=== PATIENT | female | born 2000 | race Hispanic/Latino ===

== ENCOUNTER 2020-06-05 09:03 | Emergency (ER) | payer OTHER ==
[~2020-06-05] VITALS: Ht 157.5 cm; Wt 80.5 kg
--- NOTE | 2020-06-05 09:25 | Emergency Department Note ---
History of Present Illnes History of Present Illness Chief Complaint: Abdominal Complaints History of Present Illness This is a 19 year old female 3 week h/o of CP with pedal edema and SOB. Patient reports a multitude of issues which includes VALDES, Abd pain, dyspnea. States that her mother had listened to her and was able to auscultate PVC's. FH of Christie's thyroiditis . Historian: Patient, Family Member Arrival Mode: Car Onset (how long ago): week(s) (3) Radiation: Reports non-radiation Severity: moderate Onset quality: gradual Duration (how long): week(s) (3) Timing of current episode: constant Progression: worsening Chronicity: new Context: Reports recent illness Relieving factors: none Exacerbating factors: none Associated symptoms: Reports chest pain, Reports shortness of breath Past Medical/Family History Physician Review I have reviewed the patient's past medical and family history. Any updates have been documented here. Past Medical History Recent Fever: No Clinical Suspicion of Infectio: No New/Unexplained Change in Ment: No Past Medical History: None Past Surgical History: None Social History Smoking Cessation: Never Smoker Alcohol Use: None Any Illegal Drug Use: No Review of Systems Review of Systems Constitutional: Reports weakness EENTM: Reports no symptoms Cardiovascular: Reports chest pain, Reports edema Respiratory: Reports wheezing Gastrointestinal: Reports abdominal pain Genitourinary: Reports no symptoms Musculoskeletal: Reports no symptoms Integumentary: Reports no symptoms Neurological: Reports no symptoms Psychological: Reports no symptoms Endocrine: Reports no symptoms Hematological/Lymphatic: Reports no symptoms Physical Exam Related Data Allergies: Coded Allergies: codeine (Verified Allergy, Unknown, 06/05/20) iodine (Verified Allergy, Unknown, 06/05/20) Vital signs reviewed: Yes Physical Exam CONSTITUTIONAL Constitutional: Present well-developed, Present well-nourished, Present obese HENT HENT: Present normocephalic, Present atraumatic, Present oropharynx clear/moist, Present nose normal HENT L/R: Present left ext ear normal, Present right ext ear normal EYES Eyes: Reports PERRL, Reports conjunctivae normal NECK Neck: Present ROM normal PULMONARY Pulmonary: Present effort normal, Present breath sounds normal CARDIOVASCULAR Cardiovascular: Present regular rhythm, Present heart sounds normal, Present capillary refill normal, Present normal rate, Present LLE edema, Present RLE edema GASTROINTESTINAL Abdominal: Present soft, Present nontender, Present bowel sounds normal GENITOURINARY Genitourinary: Present exam deferred SKIN Skin: Present warm, Present dry MUSCULOSKELETAL Musculoskeletal: Present ROM normal NEUROLOGICAL Neurological: Present alert, Present oriented x 3, Present no gross motor or sensory deficits PSYCHOLOGICAL Psychological: Present mood/affect normal, Present judgement normal Results Laboratory Lab results reviewed: Yes Imaging Imaging results reviewed: Yes Impressions [place] [address] Patient Name: LINDA MICHAUD MR #: [id number] : 2000 Age/Sex: 19/F Req #: [id number] Adm Physician: Ordered by: LULU MONGE DO Report #: [id number] Location: [facility] Room/Bed: Procedure: [id number] HOPD/CXR 2 VIEW - HOPD Exam Date: 06/05/20 Exam Time: 954 REPORT STATUS: Signed EXAMINATION: CXR 2 VIEW - HOPD INDICATION: Headache. Nausea. Feet swelling. ^SOB ^[id number] ^[id number] COMPARISON: None FINDINGS: TUBES and LINES: None. LUNGS: Lungs are well inflated. Lungs are clear. There is no evidence of pneumonia or pulmonary edema. PLEURA: No pleural effusion or pneumothorax. HEART AND MEDIASTINUM: The cardiomediastinal silhouette is unremarkable. BONES AND SOFT TISSUES: No acute osseous lesion. Linear metallic foreign bodies over the inferior breast tissue on the frontal image. UPPER ABDOMEN: No free air under the diaphragm. IMPRESSION: No acute thoracic abnormality. Signed by: Dr. Jay Baeza M.D. on 06/05/2020 10:00 AM Dictated By: JAY BAEZA MD, MD 1000 Transcribed By: JOHN on 06/05/20 1000 COPY TO: LULU MONGE DO~ Procedures 12 Lead ECG Interpretation ECG Interpretation : ECG: ECG 1 Telegraph And Teletype Operator: Interpreted by ED physician Date: Jun 05, 2020 Time: 09:42 Prior ECG tracings: reviewed Rhythm: sinus rhythm Rate: normal BPM: 65 QRS axis: normal Conduction: incomplete RBBB ST segments normal: Yes T waves normal: Yes Clinical Impression: non-specific ECG Assessment & Plan Medical Decision Making MDM Diff Dx : thyroiditis, CHF, ACS, PNA, Reassessment Reassessment S/W stepmother who is a charge nurse [facility] and set expectations regarding lab work for patient. Lab results to be given to the patient with f/u to Dr Lauren Orourke Assessment & Plan Final Impression: (1) Weakness Depart Disposition: HOME, SELF-CARE LULU MONGE DO Jun 05, 2020 09:25
--- NOTE | 2020-06-05 10:03 | Diagnostic Imaging Report ---
EXAMINATION: CXR 2 VIEW - HOPD INDICATION: Headache. Nausea. Feet swelling. ^SOB ^[id number] ^[id number] COMPARISON: None FINDINGS: TUBES and LINES: None. LUNGS: Lungs are well inflated. Lungs are clear. There is no evidence of pneumonia or pulmonary edema. PLEURA: No pleural effusion or pneumothorax. HEART AND MEDIASTINUM: The cardiomediastinal silhouette is unremarkable. BONES AND SOFT TISSUES: No acute osseous lesion. Linear metallic foreign bodies over the inferior breast tissue on the frontal image. UPPER ABDOMEN: No free air under the diaphragm. IMPRESSION: No acute thoracic abnormality. Signed by: Dr. Jay Baeza M.D. on 06/05/2020 10:00 AM
--- OUTSIDE RECORDS SUMMARY | 2020-06-05 10:05 | XMS REPORT | Continuity of Care Document ---
Author Author [facility] Organization [facility] Address 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 Allergies, Adverse Reactions, Alerts This patient has no known allergies or adverse reactions. Social History Social Habit Start Date Stop Date Quantity Comments Source Sex Assigned At [facility] Alcohol intake 2019-02-12 00:00:00 2019-02-12 00:00:00 Current non-drinker of alcohol (finding) Mitchell Cornell Smoking Status Start Date Stop Date Source Never smoker Mitchell alford Medications Ordered Medication Name Filled Medication Name Start Date Stop Da te Current Medication? Ordering Clinician Indication Dosage Frequency Signature (SIG) Comments Components Source predniSONE (DELTASONE) 1 mg tablet 2019-02-12 10:26:13 Yes 1mg QD Take 1 mg by mouth daily. Mitchell Cornell gabapentin (NEURONTIN) 100 mg capsule 2019-02-12 10:26:13 Yes 100mg [id number] Take 100 mg by mouth 3 (three) times a day. Mitchell Cornell beclomethasone (QVAR) 40 mcg/actuation inhaler 2017-10-28 00:00: 00 Yes 80ug Inhale 80 mcg. Mitchell graham albuterol (PROAIR HFA,PROVENTIL HFA,VENTOLIN HFA) 90 mcg/act uation inhaler 2017-10-26 00:00:00 Yes 540ug Inhale 540 mcg. [facility] Procedures This patient has no known procedures. Plan of Care Planned Activity Planned Date Details Comments Source Future Scheduled Test 2020-06-26 00:00:00 INFLUENZA VACCINE [code = INFLUENZA VACCINE] [facility] Future Scheduled Test 2016 00:00:00 CHLAMYDIA SCREENIN G [code = CHLAMYDIA SCREENING] [facility] Results Test Description Test Time Test Comments Results Result Comments Source CXR 2 VIEW - HOPD 2020-06-05 09:58:00 [facility] [address] [address] Patient Name: LINDA MICHAUD MR #: [id number] : 2000 Age/Sex: 19/F Req #: [id number] Adm Physician: Ordered by: LULU MONGE DO Report #: [id number] Location: [facility] Room/Bed: Procedure: [id number] HOPD/CXR 2 VIEW - HOPD Exam Date: 06/05/20 Exam Time: 954 REPORT STATUS: Signed EXAMINATION: CXR 2 VIEW - HOPD INDICATION: Headache. Nausea. Feet swelling. SOB [id number] COMPARISON: None FINDINGS: TUBES and LINES: None. LUNGS: Lungs are well inflated. Lungs are clear. There is no evidence of pneumonia or pulmonary edema. PLEURA: No pleural effusion or pneumothorax. HEART AND MEDIASTINUM: The cardiomediastinal silhouette is unremarkable. BONES AND SOFT TISSUES: No acute osseous lesion. Linear metallic foreign bodies over the inferior breast tissue on the frontal image. UPPER ABDOMEN: No free air under the diaphragm. IMPRESSION: No acute thoracic abnormality. Signed by: Dr. Abner Baeza M.D. on 06/05/2020 10:00 AM Dictated By: ABNER BAEZA MD, MD 1000 Transcribed By: JOHN on 06/05/20 1000 COPY TO: LULU MONGE DO Chemistry - Specials 2020-06-03 16:35:00 Test Item Chemistry - Specials (test code = TSH3) 0.6408 uIU/mL 0.35-4.94 N [id number] 15:45:00* Test Item Value Reference Range Interpretation Comments Urinalysis (test code = BHCGUT) Negative Negative Method of sensitivity- INDETERMINANT: results should be repeated after 48-72 hrs POSITIVE: results may be detected as early as 1 day after the first missed period A dilute urine specimen may not contain representativelevels of hCG.If is still suspected, a first morning urinespecimen OR a random blood specimen should be obtainedfrom the patient 48- 72 hours later and re-tested. Urinalysis (test code = PREGUSG) 1.018 1.002-1.036 N [id number] 15:43:00* Test Item Value Reference Range Interpretation Comments Urinalysis (test code = UACLR) Light-Yellow Yellow Urinalysis (test code = UACLY) Clear Clear Urinalysis (test code = SPGR) 1.018 1.002-1.036 N Urinalysis (test code = TRISTEN) 6.5 5.0-9.0 N Urinalysis (test code = UALEU) Negative Flavia/uL Negative Urinalysis (test code = UANIT) Negative Negative Urinalysis (test code = PROUADIP) Negative mg/dL Neg-Trace Urinalysis (test code = GLUCU) Normal mg/dL Negative Urinalysis (test code = KETU) Negative mg/dL Negative Urinalysis (test code = UAUROB) Normal mg/dL Less than 2 Urinalysis (test code = UABIL) Negative Negative Urinalysis (test code = UABLD) Negative Negative Urine Source: Urine Clean [id number] 15:33:00* Test Item Value Reference Range Interpretation Comments Chemistry (test code = NA-T) 140 mmol/L 136-145 N Chemistry (test code = K-T) 3.7 mmol/L 3.5-5.1 N Chemistry (test code = CL) 109 mmol/L 98-107 H Chemistry (test code = CO2) 21 mmol/L 22-29 L Chemistry (test code = ANGP) 14 mmol/L 10-20 N Chemistry (test code = BUN) 7 mg/dL 8.4-21.0 L Chemistry (test code = CREATT) 0.81 mg/dL 0.6-1.1 N Chemistry (test code = EGFRMDRD) Greater than 90 Reference Range for Estimated GFR: Greater than 90 mL/min/1.73 m2NOTE:The MDRD equation has not been validated for use with theelderly (over 70 years of age), women, patientswith serious comorbid condition or persons with extremes ofbody size, muscle mass, or nutritional status. Chemistry (test code = GLU-T) 93 mg/dL 70-105 N Chemistry (test code = CA) 9.2 mg/dL 7.8-10.44 N Chemistry (test code = TBILI-T) 0.3 mg/dL 0.2-1.2 N Chemistry (test code = TP) 7.3 g/dL 6.0-8.3 N Chemistry (test code = ALB) 4.4 g/dL 3.5-5.0 N Chemistry (test code = GLOB) 2.9 g/dL 2.4-3.5 N Chemistry (test code = AG) 1.5 g/dL 1.2-2.2 N Chemistry (test code = ALP) 71 U/L 40-100 N Chemistry (test code = AST) 16 U/L 5-30 N Chemistry (test code = ALT) 13 U/L 8-55 N [id number] 15:12:00* Test Item Value Reference Range Interpretation Comments Hematology (test code = WBCT) 9.6 thou/uL 4.8-10.8 N Hematology (test code = RBCT) 4.73 mill/uL 4.00-5.20 N Hematology (test code = HGBT) 14.0 g/dL 12.0-16.0 N Hematology (test code = HCTT) 40.6 % 36.0-47.0 N Hematology (test code = MCV) 85.8 fL 78.0-98.0 N Hematology (test code = MCH) 29.6 pg 25.0-35.0 N Hematology (test code = MCHC) 34.5 g/dL 32.0-36.0 N Hematology (test code = RDW) 11.3 % 11.5-14.5 L Hematology (test code = PLTT) 258 thou/uL 130-400 N Hematology (test code = MPV) 8.1 fL 7.4-10.4 N Hematology (test code = %NEUT) 59.5 % 31.0-61.0 N Hematology (test code = %LYMPH) 30.3 % 28.0-48.0 N Hematology (test code = %MONO) 5.2 % 0.0-4.0 H Hematology (test code = %EOS) 4.7 % 0.0-10.0 N Hematology (test code = %BASO) 0.4 % 0.0-1.0 N Hematology (test code = NEUT#) 5.7 thou/uL 1.40-6.50 N Hematology (test code = LYMPH#) 2.9 thou/uL 1.20-3.40 N Hematology (test code = MONO#) 0.5 thou/uL 0.11-0.59 N Hematology (test code = EOS#) 0.4 thou/uL 0.0-0.7 N Hematology (test code = BASO#) 0.0 thou/uL 0.0-0.2 N Reference Lab [id number] 11:58:00* Test Item Value Reference Range Interpretation Comments Reference Lab Testing (test code = [id number]) Not Detected NotDetect ed Negative (Not Detected) results do not preclude infectionwith SARS-CoV-2 virus, and should not be the sole basis of apatient management decision. Consider testing for otherviruses if clinically indicated.The use of this assay as an In vitro diagnostic under theA Emergency Use Authorization (EUA) is limited tolaboratories that are certified under the ClinicalLaboratory Improvement Amendments of 1988 (CLIA), 42 U.S.C.263a, to perform high complexity tests. Reason for Testing: PUI -SymptomaticCulture, Strep Group A [id number] 15:04:00* Test Item Value Reference Range Interpretation Comments Culture, Strep Group A Rflx (test code = STRPACULT) STRPCULT Culture, Strep Group A Rflx (test code = STRPACULT1) N Influenza A B Ag [id number] 03:13:00* Test Item Value Reference Range Interpretation Comments Influenza A B Ag Screen (test code = FLU) The rapid Fl u A B test can distinguish between influenza A Influenza A B Ag Screen (test code = FLU1) follow up c onfirmatory testing is warranted. Influenza A B Ag Screen (test code = FLU1) FLUB Influenza A B Ag Screen (test code = FLU1) N Strep Group A [id number] 02:58:00* Test Item Value Reference Range Interpretation Comments Strep Group A Screen (test code = STRP) STRPANEG1 Strep Group A Screen (test code = STRP1) N Strep Group A Screen (test code = STRP1) STRPTH
--- OUTSIDE RECORDS SUMMARY | 2020-06-05 10:05 | XMS REPORT | Clinical Summary ---
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 8 HFA,VENTOLIN HFA) 90 mcg/actuation inhaler Active beclomethasone (QVAR) 40 Inhale 80 0 10/28 mcg/actuation inhaler mcg. 8 Active predniSONE (DELTASONE) 1 Take 1 mg by 0 mg tablet mouth daily. Active gabapentin (NEURONTIN) Take 100 mg 0 100 mg capsule by mouth 3 (three) times a day. Active Problems Not on file Social History Date Tobacco Use Types Packs/Day Years Used Never Smoker Smokeless Tobacco: Never Used Drinks/Week oz/Week Comments Alcohol Use No Sex Assigned at Date Recorded Not on file Industry Job Start Date Occupation Not on file Not on file Not on file Travel End Travel History Travel Start No recent travel history available. Last Filed Vital Signs Not on file Plan of Treatment Health Maintenance Due Date Last Done Comments CHLAMYDIA SCREENING 2016 INFLUENZA VACCINE 06/26/2020 Results Not on fileafter 06/05/2019 Insurance Type Payer Benefit Subscriber ID Effective Phone Address Plan / Dates Group Workers Comp WORKERS COMP MISC xxxxxxxxx 2018-P WORKER'S resent COMP TPL TPL TPL-MED-DA [id number] 2019- TA Present Guarantor Name Account Relation to Date of Phone Mckenzie parker Address Type Patient [id number] Workers Employer [id number] Comp (Home) [place] [address] Francesca Issa Third Self [phone] [employer] (Home) [place] [address] Liability NINA TOVAR Personal/F Mother 07/03/[phone] amily (Home) [place] [address] Advance Directives For more information, please contact: [phone] 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
[2020-06-05 10:35] LABS: BASOPHILS # (AUTO) 0.1 (0.0-0.1); BASOPHILS % 0.7 % (0.0-1.0); EOSINOPHILS # (AUTO) 0.3 (0.0-0.4); EOSINOPHILS % 3.8 % (0.0-6.0); HEMATOCRIT 38.5 % (34.2-44.1); HEMOGLOBIN 12.8 g/dL (12.0-16.0); LYMPHOCYTES # (AUTO) 2.3 (1.0-3.2); LYMPHOCYTES % 25.7 % (18.0-39.1); MEAN CORPUSCULAR HEMOGLOBIN 27.6 pg (28-32); MEAN CORPUSCULAR HGB CONC 33.2 g/dL (31-35); MONOCYTES # (AUTO) 0.5 (0.2-0.8); MONOCYTES % 5.5 % (4.4-11.3); NEUTROPHILS # (AUTO) 5.8 (2.1-6.9); NEUTROPHILS % 64.1 % (38.7-80.0); PLATELET COUNT 264 x10e3/uL (140-360); RED BLOOD COUNT 4.64 x10e6/uL (3.6-5.1); RED CELL DISTRIBUTION WIDTH 12.1 % (11.7-14.4)
[2020-06-05 10:53] LABS: ALANINE AMINOTRANSFERASE 14 IU/L (0-55); ALBUMIN 4.4 g/dL (3.5-5.0); ALBUMIN/GLOBULIN RATIO 1.6 (0.8-2.0); ALKALINE PHOSPHATASE 58 IU/L (40-150); ANION GAP 14.9 mmol/L (8-16); BLOOD UREA NITROGEN 9 mg/dL (7-26); BUN/CREATININE RATIO 11 (6-25); CALCIUM 8.8 mg/dL (8.4-10.2); CARBON DIOXIDE 19 mmol/L (22-29); CHLORIDE 109 mmol/L (98-107); CREATININE, SERUM 0.83 mg/dL (0.57-1.11); EST GLOMERULAR FILTRATION RATE > 60 ML/MIN (60-); GLUCOSE 82 mg/dL (74-118); POTASSIUM 3.9 mmol/L (3.5-5.1); SODIUM 139 mmol/L (136-145)
[2020-06-05 11:02] LABS: CREATINE KINASE MB 0.4 ng/mL (0-5.0)
[2020-06-05 11:20] VITALS: BP 95/56
== END 2020-06-05 11:30 | disposition home or self-care (01) ==
LOC: FSED 10:01
DX: R53.1 Weakness (principal); R07.89 Other chest pain; R60.9 Edema, unspecified; R10.9 Unspecified abdominal pain; R51 Headache; M79.89 Other specified soft tissue disorders
CPT/HCPCS: 36415; 71046; 80053; 81003; 81025; 82550; 82553; 84443; 84484; 85025; 85379; 93005; 99283